=== PATIENT | male | born 1985 | race Caucasian/White ===

== ENCOUNTER 2017-11-24 19:08 | Inpatient (IN) | payer OTHER ==
[2017-11-24 19:33] VITALS: BMI 24.5
--- NOTE | 2017-11-24 19:39 | HP ---
COWS - Scale Resting Pulse: 1= [place] 81-100 Sweatin=Flushed/Facial Moisture Restless Observation: 3= Extraneous Movement Pupil Size: 2= Moderately Dilated Bone or Joint Aches: 2= Severe Diffuse Aches Runny Nose/ Eye Tearin= Runny Nose/Eyes GI Upset > 30mins: 3= Vomiting/Diarrhea Tremor Observation: 2= Slight Tremor Visible Yawning Observation: 2= >3x During Session Anxiety or Irritability: 2=Irritable/Anxious Goose Flesh Skin: 0=Smooth Skin COWS Score: 21 CIWA Score - CIWA Score Nausea/Vomitin Muscle Tremors: 3 Anxiety: 3 Agitation: 3 Paroxysmal Sweats: 2 Orientation: 0-Oriented Tacttile Disturbances: 2-Mild Itch/Numbness/Burn Auditory Disturbances: 2-Mild Harshness/Frighten Visual Disturbances: 0-None Headache: 2-Mild CIWA-Ar Total Score: 20 Admission ROS [facility] - HPI Chief Complaint: i need help to stop using heroin,xanax,oxy Allergies/Adverse Reactions: Allergies Allergy/AdvReac Type Severity Reaction Status Date / Time No Known Allergies Allergy Verified 11/24/17 19:36 History of Present Illness: this 32 years old male with heroin,xanax and oxy,seeking detox,never been in detox before nicotine dependence - Ebola screening Have you traveled outside of the country in the last 21 days: No ([place]) Have you had contact with anyone from an Ebola affected area: No Have you been sick,other than usual withdrawal symptoms: No Do you have a fever: No - Review of Systems Constitutional: Chills, Diaphoresis, Loss of Appetite, Malaise, Night Sweats, Changes in sleep, Weakness, Unintentional Wgt. Loss EENT: reports: Tearing, Nose Congestion Respiratory: reports: No Symptoms reported GI: reports: Diarrhea, Nausea, Vomiting, Abdominal cramping : reports: No Symptoms Reported Musculoskeletal: reports: Back Pain, Joint Pain, Muscle Pain, Joint Stiffness Integumentary: reports: Dryness Neuro: reports: No Symptoms reported Endocrine: reports: No Symptoms Reported Hematology: reports: No Symptoms Reported Psychiatric: reports: No Sypmtoms Reported Patient History - Patient Medical History Hx Anemia: No Hx Asthma: No Hx Cardiac Disorders: No Hx Congestive Heart Failure: No Hx Hypertension: No Hx Hypercholesterolemia: No Hx Pacemaker: No HX Cerebrovascular Accident: No Hx Seizures: No Hx Dementia: No Hx Diabetes: No Hx Gastrointestinal Disorders: No Hx Liver Disease: No Hx Genitourinary Disorders: No Hx Sexually Transmitted Disorders: No Hx Renal Disease (ESRD): No Hx Thyroid Disease: No Hx Human Immunodeficiency Virus (HIV): No (last 2008 negative) Hx Hepatitis C: No Hx Depression: No Hx Suicide Attempt: No Hx Bipolar Disorder: No Hx Schizophrenia: No Other Medical History: no suicidal,no homicidal - Patient Surgical History Past Surgical History: No - PPD History Previous Implant?: Yes Documented Results: Negative w/o proof Implanted On Prior [facility] Admission?: No PPD to be Administered?: Yes - Smoking Cessation Smoking history: Current every day smoker Have you smoked in the past 12 months: Yes Aproximately how many cigarettes per day: 20 Hx Chewing Tobacco Use: No Initiated information on smoking cessation: Yes 'Breaking Loose' booklet given: 11/24/17 - Substance & Tx. History Hx Alcohol Use: No Hx Substance Use: Yes Substance Use Type: Heroin, Opiates, Tranquilizers Hx Substance Use Treatment: No - Substances Abused Heroin Route: Inhalation Frequency: Daily Amount used: 6 to 10 bags Age of first use: 29 Date of Last Use: 11/24/17 Alprazolam (Xanax) Route: Oral Frequency: 1-2 times per week Amount used: 6 to 8 mgs Age of first use: 25 Date of Last Use: 11/22/17 Oxycontin Route: Oral Frequency: 1-2 times per week Amount used: 80 mgs to 120 mgs Age of first use: 26 Date of Last Use: 11/21/17 Family Disease History - Family Disease History Family History: Denies Family Disease History: Other: Sister (jorge luis salvador) Admission Physical Exam S - Vital Signs Vital Signs: Vital Signs - 24 hr 11/24/17 19:29 Temperature 98.7 F Pulse Rate 82 Respiratory 18 Rate Blood Pressure 114/70 - Physical General Appearance: Yes: Moderate Distress, Tremorous, Irritable, Sweating, Anxious HEENTM: Yes: [place], Pharynx Normal, Nasal Congestion Respiratory: Yes: Lungs Clear, Normal Breath Sounds, No Respiratory Distress Neck: Yes: Within Normal Limits, Supple, Trachea in good position Breast: Yes: Within Normal Limits Cardiology: Yes: Within Normal Limits, Regular Rhythm, Regular Rate, S1, S2 Abdominal: Yes: Within Normal Limits, Normal Bowel Sounds, Non Tender, Flat, Soft Genitourinary: Yes: Within Normal Limits Back: Yes: Muscle Spasm Musculoskeletal: Yes: full range of Motion, Back pain, Joint Stiffness, Muscle Pain Extremities: Yes: Within Normal Limits, Normal Range of Motion, Tremors Neurological: Yes: 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 NML intact, Fully Oriented, Alert, Motor Strength 5/5 Integumentary: Yes: Dry Lymphatic: Yes: Within Normal Limits - Diagnostic (1) Opioid dependence with withdrawal Current Visit: Yes Status: Acute (2) Uncomplicated sedative, hypnotic or anxiolytic withdrawal Current Visit: Yes Status: Acute (3) Nicotine dependence Current Visit: Yes Status: Acute Cleared for Admission [facility] - Detox or Rehab [facility] Level of Care: Medically Managed Detox Regimen/Protocol: Methadone/Valium [facility] Breath Alcohol Content Breath Alcohol Content: 0 Urine Drug Screen - Results Drug Screen Negative: No Urine Drug Screen Results: OPI-Opiates, BZO-Benzodiazepines, OXY-Oxycodone
[2017-11-24] MEDS ORDERED: hydrOXYzine PAMOATE 50 MG CAPSULE (FP) PO PRN (19:52)
[2017-11-24] MEDS ORDERED: guaiFENesin/D-METHORPHAN HB 10 ML UNIT-DOSE CUPS PO PRN (19:52)
[2017-11-24] MEDS ORDERED: MAGNESIUM HYDROX 2400MG/30ML ORAL SUSPENSION 30 ML CUP PO PRN (19:52)
[2017-11-24] MEDS ORDERED: MENTHOL/PHENOL 1 EACH UD MM PRN (19:52)
[2017-11-24] MEDS ORDERED: MAG HYDROX/AL HYDROX/SIMETH 30 ML UNIT-DOSE CUP PO PRN (19:52)
[2017-11-24] MEDS ORDERED: LOPERAMIDE HCL 2 MG CAPSULE PO PRN (19:52)
[2017-11-24] MEDS ORDERED: diazePAM 5 MG TABLET PO PRN (19:52)
[2017-11-24] MEDS ORDERED: ACETAMINOPHEN 325 MG TABLET (FP) PO PRN (19:52)
[2017-11-24] MEDS ORDERED: P-EPHED 60MG/TRIPROLIDI 2.5MG TABLET PO PRN (19:52)
[2017-11-24] MEDS ORDERED: MAGNESIUM CITRATE 300 ML BOTTLE PO PRN (19:52)
[2017-11-24] MEDS ORDERED: IBUPROFEN 400 MG TABLET (FP) PO PRN (19:52)
[2017-11-24] MEDS ORDERED: CYCLOBENZAPRINE HCL 10 MG TABLET (FP) PO PRN (19:56)
[2017-11-24] MEDS ORDERED: diazePAM 5 MG TABLET PO ONE (21:00)
[2017-11-24] MEDS ORDERED: METHADONE HCL 10 MG TABLET (FOR DETOX USE ONLY) PO ONE ×2 (21:00→23:00)
[2017-11-24] MEDS: cloNIDine HCL 0.1 MG TABLET PO SCH (21:18)
[2017-11-24] MEDS: diazePAM 5 MG TABLET PO SCH (21:19)
[2017-11-24] MEDS: NICOTINE 21 MG/24 HOURS TOPICAL PATCH TD SCH (21:37)
[2017-11-24] MEDS: THIAMINE HCL 100 MG TABLET (FP) PO SCH (22:51)
[2017-11-25 00:07] LABS: URINE APPEARANCE TURBID; URINE BILIRUBIN NEGATIVE (NEGATIVE); URINE BLOOD NEGATIVE (NEGATIVE); URINE GLUCOSE (UA) NEGATIVE (NEGATIVE); URINE KETONE TRACE (NEGATIVE); URINE LEUK ESTERASE NEGATIVE (NEGATIVE); URINE NITRITE NEGATIVE (NEGATIVE); URINE PROTEIN NEGATIVE (NEGATIVE)
[2017-11-25 01:01] LABS: URINE COLOR DK YELLOW
[2017-11-25] MEDS: diazePAM 5 MG TABLET PO SCH ×3 (05:16→22:18)
[2017-11-25] MEDS ORDERED: METHADONE HCL 10 MG TABLET (FOR DETOX USE ONLY) PO SCH (10:00)
[2017-11-25] MEDS: PRENATAL VITAMINS W/ FOLIC ACID TABLET (FP) PO SCH (10:16)
[2017-11-25] MEDS: NICOTINE 21 MG/24 HOURS TOPICAL PATCH TD SCH (10:16)
[2017-11-25] MEDS: cloNIDine HCL 0.1 MG TABLET PO SCH ×2 (10:16→22:18)
[2017-11-25 10:17] LABS: HEMATOCRIT 35.8 % (35.4-49); HEMOGLOBIN 12.6 GM/dL (11.7-16.9); MCH 30.3 pg (25.7-33.7); MCHC 35.2 g/dl (32.0-35.9); MEAN CELL VOLUME 86.1 fl (80-96); PLATELET COUNT 121 K/MM3 (134-434); RBC 4.16 M/mm3 (4.00-5.60); RDW 13.9 % (11.9-15.9); WHITE BLOOD COUNT 10.6 K/mm3 (4.0-10.0)
[2017-11-25 10:22] LABS: CALCIUM 7.9 mg/dL (8.5-10.1); CHLORIDE 105 mmol/L (98-107); POTASSIUM 3.6 mmol/L (3.5-5.1); SODIUM 141 mmol/L (136-145)
[2017-11-25 10:28] LABS: ALBUMIN 3.2 g/dl (3.4-5.0); ALK PHOS 85 U/L (45-117); ANION GAP 6 (8-16); BILIRUBIN,TOTAL 0.3 mg/dL (0.2-1.0); BLOOD UREA NITROGEN 10 mg/dL (7-18); CO2 30 mmol/L (21-32); CREATININE 0.9 mg/dL (0.7-1.3); GLUCOSE,RANDOM 87 mg/dL (74-106); SGOT/AST 13 U/L (15-37); SGPT/ALT 27 U/L (12-78); TOT PROT 6.2 g/dl (6.4-8.2)
--- NOTE | 2017-11-25 11:37 | EKG ---
Test Reason : Blood Pressure : / mmHG Vent. Rate : 063 BPM Atrial Rate : 063 BPM P-R Int : 162 ms QRS Dur : 094 ms QT Int : 402 ms P-R-T Axes : 063 055 039 degrees QTc Int : 411 ms NORMAL SINUS RHYTHM NORMAL ECG NO PREVIOUS ECGS AVAILABLE Confirmed by KRYSTAL NOONAN MD ([id number]) on 11/25/2017 11:37:01 AM Referred By: Confirmed By:KRYSTAL NOONAN MD
[2017-11-25] MEDS ORDERED: FLU VACCINE QUAD 60 MCG/0.5 ML (MDV 17-18) IM ONE (12:00)
--- NOTE | 2017-11-25 13:58 | PN ---
S CIWA - CIWA Score Nausea/Vomitin Muscle Tremors: 4-Moderate,w/Arms Extend Anxiety: 4-Mod. Anxious/Guarded Agitation: 3 Paroxysmal Sweats: 3 Orientation: 0-Oriented Tacttile Disturbances: 0-None Auditory Disturbances: 0-None Visual Disturbances: 0-None Headache: 0-None Present CIWA-Ar Total Score: 16 [facility] COWS - Scale Resting Pulse: 0= [place] 80 or Below Sweatin=Flushed/Facial Moisture Restless Observation: 1= Difficult to Sit Still Pupil Size: 0= Normal to Room Light Bone or Joint Aches: 2= Severe Diffuse Aches Runny Nose/ Eye Tearin= Runny Nose/Eyes GI Upset > 30mins: 2= Nausea/Diarrhea Tremor Observation of Outstretched Hands: 2= Slight Tremor Visible Yawning Observation: 1= 1-2x During Session Anxiety or Irritability: 2=Irritable/Anxious Goose Flesh Skin: 0=Smooth Skin COWS Score: 14 S Progress Note (SOAP) Subjective: Anxiety,tremors,sweating,interrupted sleep,restless, body aches Objective: 11/25/17 13:57 Vital Signs - 8 hr 11/25/17 11/25/17 06:18 09:55 Temperature 97.4 F L 97.6 F Pulse Rate 66 75 Respiratory 18 18 Rate Blood Pressure 106/69 120/68 Laboratory Tests 11/24/17 11/25/17 11/25/17 23:50 07:40 07:40 WBC 10.6 H RBC 4.16 Hgb 12.6 Hct 35.8 MCV 86.1 MCH 30.3 MCHC 35.2 RDW 13.9 Plt Count 121 L MPV 10.0 Sodium 141 Potassium 3.6 Chloride 105 Carbon Dioxide 30 Anion Gap 6 L BUN 10 Creatinine 0.9 Creat Clearance w eGFR > 60 Random Glucose 87 Calcium 7.9 L Total Bilirubin 0.3 AST 13 L ALT 27 Alkaline Phosphatase 85 Total Protein 6.2 L Albumin 3.2 L Urine Color Dk yellow Urine Appearance Turbid Urine pH 5.0 Ur Specific [place] 1.024 Urine Protein Negative Urine Glucose (UA) Negative Urine Ketones Trace H Urine Blood Negative Urine Nitrite Negative Urine Bilirubin Negative Urine Urobilinogen 2.0 Ur Leukocyte Esterase Negative RPR Titer HIV 1&2 Antibody Screen HIV P24 Antigen 11/25/17 11/25/17 07:40 07:40 WBC RBC Hgb Hct MCV MCH MCHC RDW Plt Count MPV Sodium Potassium Chloride Carbon Dioxide Anion Gap BUN Creatinine Creat Clearance w eGFR Random Glucose Calcium Total Bilirubin AST ALT Alkaline Phosphatase Total Protein Albumin Urine Color Urine Appearance Urine pH Ur Specific [place] Urine Protein Urine Glucose (UA) Urine Ketones Urine Blood Urine Nitrite Urine Bilirubin Urine Urobilinogen Ur Leukocyte Esterase RPR Titer Nonreactive HIV 1&2 Antibody Screen Negative HIV P24 Antigen Negative labs noted Assessment: 11/25/17 13:57 Withdrawal sx. Plan: Continue detox
[2017-11-25] MEDS: THIAMINE HCL 100 MG TABLET (FP) PO SCH (22:18)
[2017-11-26] MEDS: cloNIDine HCL 0.1 MG TABLET PO SCH ×2 (10:24→22:19)
[2017-11-26] MEDS: PRENATAL VITAMINS W/ FOLIC ACID TABLET (FP) PO SCH (10:24)
[2017-11-26] MEDS: METHADONE HCL 5 MG TABLET (FOR DETOX USE ONLY) PO SCH (10:24)
[2017-11-26] MEDS: diazePAM 5 MG TABLET PO SCH ×2 (10:24→22:19)
[2017-11-26] MEDS: NICOTINE 21 MG/24 HOURS TOPICAL PATCH TD SCH (10:25)
--- NOTE | 2017-11-26 12:00 | PN ---
S CIWA - CIWA Score Nausea/Vomitin Muscle Tremors: 4-Moderate,w/Arms Extend Anxiety: 4-Mod. Anxious/Guarded Agitation: 4-Moderately Restless Paroxysmal Sweats: 3 Orientation: 0-Oriented Tacttile Disturbances: 1-Very Mild Itch/Numbness Auditory Disturbances: 0-None Visual Disturbances: 0-None Headache: 0-None Present CIWA-Ar Total Score: 19 S COWS - Scale Resting Pulse: 0= [place] 80 or Below Sweatin=Flushed/Facial Moisture Restless Observation: 3= Extraneous Movement Pupil Size: 0= Normal to Room Light Bone or Joint Aches: 2= Severe Diffuse Aches Runny Nose/ Eye Tearin= Runny Nose/Eyes GI Upset > 30mins: 2= Nausea/Diarrhea Tremor Observation of Outstretched Hands: 2= Slight Tremor Visible Yawning Observation: 0= None Anxiety or Irritability: 2=Irritable/Anxious Goose Flesh Skin: 0=Smooth Skin COWS Score: 15 [facility] Progress Note (SOAP) Subjective: Sweating, stomach ache, chills, interrupted sleep Objective: 11/26/17 11:58 Last Vital Signs Temp Pulse Resp BP Pulse Ox 98.3 F 68 18 117/70 11/26/17 11:04 11/26/17 11:04 11/26/17 11:04 11/26/17 11:04 Laboratory Tests 11/24/17 11/25/17 11/25/17 23:50 07:40 07:40 WBC 10.6 H RBC 4.16 Hgb 12.6 Hct 35.8 MCV 86.1 MCH 30.3 MCHC 35.2 RDW 13.9 Plt Count 121 L MPV 10.0 Sodium 141 Potassium 3.6 Chloride 105 Carbon Dioxide 30 Anion Gap 6 L BUN 10 Creatinine 0.9 Creat Clearance w eGFR > 60 Random Glucose 87 Calcium 7.9 L Total Bilirubin 0.3 AST 13 L ALT 27 Alkaline Phosphatase 85 Total Protein 6.2 L Albumin 3.2 L Urine Color Dk yellow Urine Appearance Turbid Urine pH 5.0 Ur Specific [place] 1.024 Urine Protein Negative Urine Glucose (UA) Negative Urine Ketones Trace H Urine Blood Negative Urine Nitrite Negative Urine Bilirubin Negative Urine Urobilinogen 2.0 Ur Leukocyte Esterase Negative RPR Titer HIV 1&2 Antibody Screen HIV P24 Antigen 11/25/17 11/25/17 07:40 07:40 WBC RBC Hgb Hct MCV MCH MCHC RDW Plt Count MPV Sodium Potassium Chloride Carbon Dioxide Anion Gap BUN Creatinine Creat Clearance w eGFR Random Glucose Calcium Total Bilirubin AST ALT Alkaline Phosphatase Total Protein Albumin Urine Color Urine Appearance Urine pH Ur Specific [place] Urine Protein Urine Glucose (UA) Urine Ketones Urine Blood Urine Nitrite Urine Bilirubin Urine Urobilinogen Ur Leukocyte Esterase RPR Titer Nonreactive HIV 1&2 Antibody Screen Negative HIV P24 Antigen Negative Labs noted Assessment: 11/26/17 11:59 Withdrawal symptoms Plan: Continue detox Encouraged to drink more water for hydration
[2017-11-26] MEDS: THIAMINE HCL 100 MG TABLET (FP) PO SCH (22:19)
[2017-11-27] MEDS: METHADONE HCL 5 MG TABLET (FOR DETOX USE ONLY) PO SCH (10:56)
[2017-11-27] MEDS: cloNIDine HCL 0.1 MG TABLET PO SCH ×2 (10:56→22:00)
[2017-11-27] MEDS: PRENATAL VITAMINS W/ FOLIC ACID TABLET (FP) PO SCH (10:56)
[2017-11-27] MEDS: diazePAM 5 MG TABLET PO SCH ×2 (10:57→22:00)
[2017-11-27] MEDS: NICOTINE 21 MG/24 HOURS TOPICAL PATCH TD SCH (10:57)
--- NOTE | 2017-11-27 12:34 | PN ---
BHS Progress Note (SOAP) Subjective: Sweating, interrupted sleep, nausea Objective: 11/27/17 12:33 Last Vital Signs Temp Pulse Resp BP Pulse Ox 97.4 F L 81 18 115/71 11/27/17 10:55 11/27/17 10:55 11/27/17 10:55 11/27/17 10:55 Laboratory Tests 11/24/17 11/25/17 11/25/17 23:50 07:40 07:40 WBC 10.6 H RBC 4.16 Hgb 12.6 Hct 35.8 MCV 86.1 MCH 30.3 MCHC 35.2 RDW 13.9 Plt Count 121 L MPV 10.0 Sodium 141 Potassium 3.6 Chloride 105 Carbon Dioxide 30 Anion Gap 6 L BUN 10 Creatinine 0.9 Creat Clearance w eGFR > 60 Random Glucose 87 Calcium 7.9 L Total Bilirubin 0.3 AST 13 L ALT 27 Alkaline Phosphatase 85 Total Protein 6.2 L Albumin 3.2 L Urine Color Dk yellow Urine Appearance Turbid Urine pH 5.0 Ur Specific [place] 1.024 Urine Protein Negative Urine Glucose (UA) Negative Urine Ketones Trace H Urine Blood Negative Urine Nitrite Negative Urine Bilirubin Negative Urine Urobilinogen 2.0 Ur Leukocyte Esterase Negative RPR Titer HIV 1&2 Antibody Screen HIV P24 Antigen 11/25/17 11/25/17 07:40 07:40 WBC RBC Hgb Hct MCV MCH MCHC RDW Plt Count MPV Sodium Potassium Chloride Carbon Dioxide Anion Gap BUN Creatinine Creat Clearance w eGFR Random Glucose Calcium Total Bilirubin AST ALT Alkaline Phosphatase Total Protein Albumin Urine Color Urine Appearance Urine pH Ur Specific [place] Urine Protein Urine Glucose (UA) Urine Ketones Urine Blood Urine Nitrite Urine Bilirubin Urine Urobilinogen Ur Leukocyte Esterase RPR Titer Nonreactive HIV 1&2 Antibody Screen Negative HIV P24 Antigen Negative Labs noted Assessment: 11/27/17 12:33 Withdrawal symptoms Plan: Continue detox
[2017-11-27] MEDS: THIAMINE HCL 100 MG TABLET (FP) PO SCH (22:00)
[2017-11-28] MEDS ORDERED: diazePAM 5 MG TABLET PO SCH (10:00)
[2017-11-28] MEDS ORDERED: METHADONE HCL 10 MG TABLET (FOR DETOX USE ONLY) PO SCH (10:00)
[2017-11-28] MEDS: PRENATAL VITAMINS W/ FOLIC ACID TABLET (FP) PO SCH (10:24)
[2017-11-28] MEDS: NICOTINE 21 MG/24 HOURS TOPICAL PATCH TD SCH (10:24)
[2017-11-28] MEDS: cloNIDine HCL 0.1 MG TABLET PO SCH ×2 (10:24→22:09)
--- NOTE | 2017-11-28 14:03 | PN ---
BHS Progress Note (SOAP) Subjective: ANXIETY,LOWER BACK PAIN,INTERMITTENT SLEEP. Objective: 11/28/17 14:04 Vital Signs Temperature 96.6 F L 11/28/17 13:11 Pulse Rate 75 11/28/17 13:11 Respiratory Rate 18 11/28/17 13:11 Blood Pressure 114/68 11/28/17 13:11 O2 Sat by Pulse Oximetry (%) Laboratory Last Values WBC 10.6 K/mm3 (4.0-10.0) H 11/25/17 07:40 RBC 4.16 M/mm3 (4.00-5.60) 11/25/17 07:40 Hgb 12.6 GM/dL (11.7-16.9) 11/25/17 07:40 Hct 35.8 % (35.4-49) 11/25/17 07:40 MCV 86.1 fl (80-96) 11/25/17 07:40 MCH 30.3 pg (25.7-33.7) 11/25/17 07:40 MCHC 35.2 g/dl (32.0-35.9) 11/25/17 07:40 RDW 13.9 % (11.9-15.9) 11/25/17 07:40 Plt Count 121 K/MM3 (134-434) L 11/25/17 07:40 MPV 10.0 fl (7.5-11.1) 11/25/17 07:40 Sodium 141 mmol/L (136-145) 11/25/17 07:40 Potassium 3.6 mmol/L (3.5-5.1) 11/25/17 07:40 Chloride 105 mmol/L (98-107) 11/25/17 07:40 Carbon Dioxide 30 mmol/L (21-32) 11/25/17 07:40 Anion Gap 6 (8-16) L 11/25/17 07:40 BUN 10 mg/dL (7-18) 11/25/17 07:40 Creatinine 0.9 mg/dL (0.7-1.3) 11/25/17 07:40 Creat Clearance w eGFR > 60 (>60) 11/25/17 07:40 Random Glucose 87 mg/dL (74-106) 11/25/17 07:40 Calcium 7.9 mg/dL (8.5-10.1) L 11/25/17 07:40 Total Bilirubin 0.3 mg/dL (0.2-1.0) 11/25/17 07:40 AST 13 U/L (15-37) L 11/25/17 07:40 ALT 27 U/L (12-78) 11/25/17 07:40 Alkaline Phosphatase 85 U/L (45-117) 11/25/17 07:40 Total Protein 6.2 g/dl (6.4-8.2) L 11/25/17 07:40 Albumin 3.2 g/dl (3.4-5.0) L 11/25/17 07:40 Urine Color Dk yellow 11/24/17 23:50 Urine Appearance Turbid 11/24/17 23:50 Urine pH 5.0 (5.0-8.0) 11/24/17 23:50 Ur Specific [place] 1.024 (1.001-1.035) 11/24/17 23:50 Urine Protein Negative (NEGATIVE) 11/24/17 23:50 Urine Glucose (UA) Negative (NEGATIVE) 11/24/17 23:50 Urine Ketones Trace (NEGATIVE) H 11/24/17 23:50 Urine Blood Negative (NEGATIVE) 11/24/17 23:50 Urine Nitrite Negative (NEGATIVE) 11/24/17 23:50 Urine Bilirubin Negative (NEGATIVE) 11/24/17 23:50 Urine Urobilinogen 2.0 mg/dL (0.2-1.0) 11/24/17 23:50 Ur Leukocyte Esterase Negative (NEGATIVE) 11/24/17 23:50 RPR Titer Nonreactive (NONREACTIVE) 11/25/17 07:40 HIV 1&2 Antibody Screen Negative 11/25/17 07:40 HIV P24 Antigen Negative 11/25/17 07:40 Assessment: 11/28/17 14:05 WITHDRAWAL SX Plan: CONTINUE DETOX
[2017-11-28] MEDS: THIAMINE HCL 100 MG TABLET (FP) PO SCH (22:09)
[2017-11-29] MEDS ORDERED: METHADONE HCL 5 MG TABLET (FOR DETOX USE ONLY) PO SCH (06:00)
[2017-11-29 06:30] VITALS: BP 130/57; PULSE 53; TEMP 97
--- NOTE | 2017-11-29 12:15 | DS ---
[facility] Detox Discharge Summary Admission Date: 11/24/17 Discharge Date: 11/29/17 - History Present History: Alcohol Dependence, Opioid Dependence, Sedative Dependence - Physical Exam Results Vital Signs: Vital Signs Temperature 97 F L 11/29/17 06:29 Pulse Rate 53 L 11/29/17 06:29 Respiratory Rate 16 11/29/17 06:29 Blood Pressure 130/57 11/29/17 06:29 O2 Sat by Pulse Oximetry (%) - Treatment Hospital Course: Detox Protocol Followed, Detoxed Safely, Responded well, Discharged Condition Good, Rehab Referral Accepted Patient has Accepted a Rehab Referral to: [facility] - Medication Discharge Medications: Ambulatory Orders NK [No Known Home Medication] 11/24/17 - Diagnosis (1) Nicotine dependence Status: Acute Qualifiers: Nicotine product type: cigarettes Substance use status: in withdrawal Qualified Code(s): F17.213 - Nicotine dependence, cigarettes, with withdrawal (2) Opioid dependence with withdrawal Status: Acute (3) Uncomplicated sedative, hypnotic or anxiolytic withdrawal Status: Acute - AMA Did Patient Leave Against Medical Advice: No
== END 2017-11-29 09:09 | disposition home or self-care (01) | DRG 773 ==
LOC: YASAS 19:08 → Y3N 19:50
PROVIDERS: ADMIT Internal Medicine; ATTEND Internal Medicine
PROC: HZ2ZZZZ Detoxification Services for Substance Abuse Treatment (ICD-10-PCS; principal; 2017-11-24)
DX: F11.23 Opioid dependence with withdrawal (principal); F13.230 Sedative, hypnotic or anxiolytic dependence with withdrawal, uncomplicated; F17.213 Nicotine dependence, cigarettes, with withdrawal
CPT/HCPCS: 36415; 80053; 81003; 85027; 86593; 87389; 90688; 93005; 93010